=== PATIENT | male | born 1945 | race Caucasian/White ===

== ENCOUNTER 2017-02-15 05:29 | Inpatient (IN) | payer MEDICARE, BC ==
[~2017-02-15 05:29] MED LIST: AMIODARONE HCL200 M1 PO; COMBIVENT RESPIM4 G1 INH; FLOMAX0.4 M1 PO; TOPROL XL50 M1 PO; VENTOLIN HFA18 G2 PO; XARELTO20 M1 PO
[2017-02-15 06:37] LABS: BASO ABSOLUTE COUNT 0.1 tho/cmm (0.0-0.2); EOS % 4.3 % (0-7); EOSINOPHIL ABSOLUTE COUNT 0.3 tho/cmm (0.0-0.7); HCT-HEMATOCRIT 52.1 % (36.0-53.5); HGB-HEMOGLOBIN 17.7 gm/dl (13.5-17.0); IMMATURE GRANULOCYTES ABSOLUTE 0.02 tho/cmm (0-0.03); IMMATURE GRANULOCYTES PERCENT 0.3 % (0-0.3); LYMPH % 21.7 % (20-45); LYMPH ABSOLUTE COUNT 1.7 tho/cmm (0.8-4.5); MCH (MEAN CORPUSCULAR HGB) 33.4 pg (28.0-32.0); MCV (MEAN CELL VOLUME) 98.3 fl (82.0-96.0); MEAN PLATELET VOLUME 9.4 cmc (9.4-12.4); MONO % 9.2 % (0-12); MONOCYTE ABSOLUTE COUNT 0.7 tho/cmm (0.0-1.2); NEUTROPHILS % 63.5 % (40-80); PLATELET COUNT 339 tho/cmm (150-450); RED CELL DISTRIBUTION WIDTH 15.3 % (12.4-16.4); WHITE BLOOD COUNT 7.8 tho/cmm (4.0-10.0)
[2017-02-15 06:50] LABS: ANION GAP 10 mmol/L (0-20); BLOOD UREA NITROGEN 12 mg/dl (6-24); CALCIUM 8.9 mg/dl (8.5-10.5); CARBON DIOXIDE-VENOUS 31 mmol/L (22-32); CHLORIDE 101 mmol/l (96-110); CREATININE 1.07 mg/dl (0.60-1.30); GLUCOSE 109 mg/dL (70-110); POTASSIUM 4.2 mmol/L (3.7-5.1); SODIUM 138 mmol/L (135-145); eGFR VALUE FOR BLACK 81 mL/Min
[2017-02-15] MEDS ORDERED: [UNRECOGNIZED DRUG - OTHER] PO (13:49)
--- NOTE | 2017-02-15 20:27 | NUR ---
VIRTUAL CARE NOTE: PT. IN BED, STATES HAS ONLY SLIGHT PAIN. ENCOURAGED I.S. DUE TO PT HAVING O2 ON. DENIES QUESTIONS OR NEEDS AT THIS TIME. INSTRUCTED TO CALL FOR FURTHER NEEDS.
[2017-02-16 03:59] LABS: BASO % 0.1 % (0-2); HCT-HEMATOCRIT 47.5 % (36.0-53.5); HGB-HEMOGLOBIN 15.9 gm/dl (13.5-17.0); IMMATURE GRANULOCYTES ABSOLUTE 0.05 tho/cmm (0-0.03); IMMATURE GRANULOCYTES PERCENT 0.4 % (0-0.3); LYMPH % 6.1 % (20-45); LYMPH ABSOLUTE COUNT 0.9 tho/cmm (0.8-4.5); MCH (MEAN CORPUSCULAR HGB) 32.8 pg (28.0-32.0); MCHC MEAN CORPUSCULAR HGB CONC 33.5 % (32.0-36.0); MCV (MEAN CELL VOLUME) 97.9 fl (82.0-96.0); MEAN PLATELET VOLUME 9.4 cmc (9.4-12.4); MONO % 6.2 % (0-12); MONOCYTE ABSOLUTE COUNT 0.9 tho/cmm (0.0-1.2); NEUTROPHIL ABSOLUTE COUNT 12.3 tho/cmm (1.6-8.0); NEUTROPHIL-AUTOMATED 12.3 tho/cmm (1.6-8.0); NEUTROPHILS % 87.2 % (40-80); PLATELET COUNT 299 tho/cmm (150-450); RED BLOOD COUNT 4.85 mil/cmm (4.40-5.70)
[2017-02-16 04:14] LABS: WHITE BLOOD COUNT 14.1 tho/cmm (4.0-10.0)
[2017-02-16 04:26] LABS: BLOOD UREA NITROGEN 16 mg/dl (6-24); CALCIUM 8.1 mg/dl (8.5-10.5); CARBON DIOXIDE-VENOUS 27 mmol/L (22-32); CHLORIDE 102 mmol/l (96-110); GLUCOSE 122 mg/dL (70-110); SODIUM 136 mmol/L (135-145); eGFR VALUE FOR BLACK 56 mL/Min
[2017-02-16 04:46] LABS: ANION GAP 12 mmol/L (0-20); CREATININE 1.45 mg/dl (0.60-1.30); POTASSIUM 4.8 mmol/L (3.7-5.1)
--- NOTE | 2017-02-16 08:44 | NUR ---
VIRTUAL CARE NOTE: PT AWAKE SITTING UP IN CHAIR. PT STATE PAIN IS TOLERABLE. ENCOURAGE IS 10X Q1H [place] AND AMBULATION. PT DENIES QUESTIONS OR CONCERNS AT THIS TIME. VN WILL CONTINUE TO MONITOR RECORD AND FOLLOW W/ PT
[2017-02-16 13:01] LABS: HCT-HEMATOCRIT 50.5 % (36.0-53.5); IMMATURE GRANULOCYTES ABSOLUTE 0.05 tho/cmm (0-0.03); IMMATURE GRANULOCYTES PERCENT 0.3 % (0-0.3); LYMPH % 6.1 % (20-45); LYMPH ABSOLUTE COUNT 1.1 tho/cmm (0.8-4.5); MCH (MEAN CORPUSCULAR HGB) 33.2 pg (28.0-32.0); MCHC MEAN CORPUSCULAR HGB CONC 33.7 % (32.0-36.0); MCV (MEAN CELL VOLUME) 98.6 fl (82.0-96.0); MEAN PLATELET VOLUME 9.4 cmc (9.4-12.4); MONO % 11.5 % (0-12); MONOCYTE ABSOLUTE COUNT 2.1 tho/cmm (0.0-1.2); NEUTROPHIL ABSOLUTE COUNT 15.1 tho/cmm (1.6-8.0); NEUTROPHIL-AUTOMATED 15.1 tho/cmm (1.6-8.0); NEUTROPHILS % 82.1 % (40-80); PLATELET COUNT 307 tho/cmm (150-450); RED BLOOD COUNT 5.12 mil/cmm (4.40-5.70); RED CELL DISTRIBUTION WIDTH 15.1 % (12.4-16.4); WHITE BLOOD COUNT 18.3 tho/cmm (4.0-10.0)
[2017-02-16 13:24] LABS: PROCALCITONIN 0.17 ng/ml (0.05-0.09)
--- NOTE | 2017-02-16 21:37 | NUR ---
VIRTUAL CARE NOTE: PT. UP IN THE CHAIR. STATES PAIN MEDS WERE WORKING AND IS STILL SOB WITH ACTIVITY. O2 IS ON AT 2L PER N/C. ENCOURAGED FREQUENT I.S. USE. DENIES FURTHER NEEDS AT THIS TIME. INSTRUCTED TO CALL FOR FUTURE NEEDS. STATES VERBAL UNDERSTANDING.
--- NOTE | 2017-02-17 12:00 | NUR ---
VIRTUAL CARE NOTE: NURSING STAFF REQUESTED ASSISTANCE W/ DIFFICULT CATHETER PLACEMENT D/T SCROTAL/PENIAL EDEMA, UROLOGY TECH NO ONCALL. VN ASSISTS AT BEDSIDE.
--- NOTE | 2017-02-17 19:20 | NUR ---
VIRTUAL CARE NOTE: ASSESSMENT DEFERRED. PT. SLEEPING.
[2017-02-18 05:21] LABS: ANION GAP 9 mmol/L (0-20); BLOOD UREA NITROGEN 17 mg/dl (6-24); CALCIUM 8.7 mg/dl (8.5-10.5); CARBON DIOXIDE-VENOUS 29 mmol/L (22-32); CHLORIDE 100 mmol/l (96-110); CREATININE 1.81 mg/dl (0.60-1.30); GLUCOSE 114 mg/dL (70-110); POTASSIUM 4.4 mmol/L (3.7-5.1); SODIUM 134 mmol/L (135-145); eGFR VALUE FOR BLACK 43 mL/Min
[2017-02-18 05:37] LABS: BASO % 0.2 % (0-2); EOS % 0.9 % (0-7); EOSINOPHIL ABSOLUTE COUNT 0.1 tho/cmm (0.0-0.7); HCT-HEMATOCRIT 44.3 % (36.0-53.5); HGB-HEMOGLOBIN 14.6 gm/dl (13.5-17.0); IMMATURE GRANULOCYTES ABSOLUTE 0.04 tho/cmm (0-0.03); IMMATURE GRANULOCYTES PERCENT 0.3 % (0-0.3); LYMPH % 7.5 % (20-45); MCH (MEAN CORPUSCULAR HGB) 32.7 pg (28.0-32.0); MCV (MEAN CELL VOLUME) 99.1 fl (82.0-96.0); MEAN PLATELET VOLUME 9.8 cmc (9.4-12.4); MONO % 9.5 % (0-12); MONOCYTE ABSOLUTE COUNT 1.3 tho/cmm (0.0-1.2); NEUTROPHIL ABSOLUTE COUNT 10.8 tho/cmm (1.6-8.0); NEUTROPHIL-AUTOMATED 10.8 tho/cmm (1.6-8.0); NEUTROPHILS % 81.6 % (40-80); PLATELET COUNT 254 tho/cmm (150-450); RED BLOOD COUNT 4.47 mil/cmm (4.40-5.70); RED CELL DISTRIBUTION WIDTH 15.3 % (12.4-16.4); WHITE BLOOD COUNT 13.2 tho/cmm (4.0-10.0)
[2017-02-18 09:34] LABS: URINE BILIRUBIN NEGATIVE (NEG); URINE BLOOD LARGE (NEG); URINE GLUCOSE (UA) NEGATIVE (NEG); URINE KETONE NEGATIVE (NEG); URINE LEUKOCYTE ESTERASE POSITIVE (NEG); URINE NITRITE NEGATIVE (NEG); URINE PROTEIN MODERATE (NEG)
[2017-02-18 09:35] LABS: URINE APPEARANCE CLEAR; URINE COLOR YELLOW
[2017-02-18 09:43] LABS: URINE EPITHELIAL CELLS 0-3 /[HPF] (0-10)
--- NOTE | 2017-02-18 12:39 | NUR ---
VIRTUAL CARE NOTE: PT SITTING ON CHAIR, STATES DOING OK, STILL ON LIQUID DIET, DENIES PASSING GAS. PLAN OF CARE REIVEWED, ENCOURAGE AMBULATION AND USING INCENTIVE SPIROMETER. PT STILL ON O2. PT DENIES ANY NEEDS ANY TIMES. CHART REVIEWED.
[2017-02-19 14:14] LABS: ANION GAP 9 mmol/L (0-20); BLOOD UREA NITROGEN 16 mg/dl (6-24); CALCIUM 9.1 mg/dl (8.5-10.5); CARBON DIOXIDE-VENOUS 31 mmol/L (22-32); CHLORIDE 98 mmol/l (96-110); CREATININE 1.54 mg/dl (0.60-1.30); GLUCOSE 120 mg/dL (70-110); POTASSIUM 4.3 mmol/L (3.7-5.1); SODIUM 134 mmol/L (135-145); eGFR VALUE FOR BLACK 52 mL/Min
[2017-02-20 05:25] LABS: BASO % 0.2 % (0-2); EOS % 1.7 % (0-7); EOSINOPHIL ABSOLUTE COUNT 0.2 tho/cmm (0.0-0.7); HCT-HEMATOCRIT 46.5 % (36.0-53.5); HGB-HEMOGLOBIN 15.5 gm/dl (13.5-17.0); IMMATURE GRANULOCYTES ABSOLUTE 0.07 tho/cmm (0-0.03); IMMATURE GRANULOCYTES PERCENT 0.7 % (0-0.3); LYMPH % 12.1 % (20-45); LYMPH ABSOLUTE COUNT 1.3 tho/cmm (0.8-4.5); MCH (MEAN CORPUSCULAR HGB) 32.7 pg (28.0-32.0); MCHC MEAN CORPUSCULAR HGB CONC 33.3 % (32.0-36.0); MCV (MEAN CELL VOLUME) 98.1 fl (82.0-96.0); MEAN PLATELET VOLUME 9.5 cmc (9.4-12.4); MONO % 8.8 % (0-12); MONOCYTE ABSOLUTE COUNT 0.9 tho/cmm (0.0-1.2); NEUTROPHIL ABSOLUTE COUNT 7.9 tho/cmm (1.6-8.0); NEUTROPHIL-AUTOMATED 7.9 tho/cmm (1.6-8.0); NEUTROPHILS % 76.5 % (40-80); PLATELET COUNT 335 tho/cmm (150-450); RED BLOOD COUNT 4.74 mil/cmm (4.40-5.70); WHITE BLOOD COUNT 10.3 tho/cmm (4.0-10.0)
[2017-02-20 05:38] LABS: ANION GAP 11 mmol/L (0-20); BLOOD UREA NITROGEN 18 mg/dl (6-24); CALCIUM 9.2 mg/dl (8.5-10.5); CARBON DIOXIDE-VENOUS 29 mmol/L (22-32); CHLORIDE 99 mmol/l (96-110); CREATININE 1.69 mg/dl (0.60-1.30); GLUCOSE 108 mg/dL (70-110); POTASSIUM 4.1 mmol/L (3.7-5.1); SODIUM 135 mmol/L (135-145); eGFR VALUE FOR BLACK 47 mL/Min
--- NOTE | 2017-02-20 21:32 | NUR ---
VIRTUAL CARE NOTE: ASSESSMENT DEFERRED. PT. SLEEPING.
[2017-02-21] MEDS ORDERED: TYLENOL325 M2 PO (09:31)
[2017-02-21] MEDS ORDERED: PERCOCET 5-3251 EACH PO (09:45)
[2017-02-21] MEDS ORDERED: COLACE100 M1 PO (09:45)
[2017-02-21] MEDS ORDERED: SYMBICORT 160-1 PUFF INH (10:30)
== END 2017-02-21 14:00 | DRG 656 ==
LOC: SHSB 05:29 → ORW 07:35 → PACU 11:08 → 5WD 12:25
PROVIDERS: Family Medicine; Internal Medicine; ADMIT Urology
PROC: 0TT14ZZ Resection of Left Kidney, Percutaneous Endoscopic Approach (ICD-10-PCS; principal; 2017-02-15)
PROC: 0TT74ZZ Resection of Left Ureter, Percutaneous Endoscopic Approach (ICD-10-PCS; 2017-02-15)
PROC: 8E0W3CZ Robotic Assisted Procedure of Trunk Region, Percutaneous Approach (ICD-10-PCS; 2017-02-15)
DX: C64.2 Malignant neoplasm of left kidney, except renal pelvis (principal); J96.21 Acute and chronic respiratory failure with hypoxia; I50.9 Heart failure, unspecified; J44.1 Chronic obstructive pulmonary disease with (acute) exacerbation; K56.7 Ileus, unspecified; J96.22 Acute and chronic respiratory failure with hypercapnia; K91.89 Other postprocedural complications and disorders of digestive system; F17.210 Nicotine dependence, cigarettes, uncomplicated; N40.0 Benign prostatic hyperplasia without lower urinary tract symptoms; Z79.01 Long term (current) use of anticoagulants
CPT/HCPCS: J0690; J1170; J1644; J1940; J2250; J2405; J3010; J7030